=== PATIENT | female | born 2000 | race American Indian/Alaskan Native ===

== ENCOUNTER 2019-05-08 18:51 | Emergency (ER) | payer SELFPAY ==
--- NOTE | 2019-05-08 21:19 | Event Note ---
ED Screening Note Date of service: 05/08/19 Time: 21:12 ED Screening Note: This is a 18 y.o. F. that presents to the ER with vaginal pain and pelvic pain for 2 weeks. LMP 03/26/19 Admits vaginal discharge, vaginal pain, and pelvic pain This initial assessment/diagnostic orders/clinical plan/treatment(s) is/are subject to change based on patients health status, clinical progression and re- assessment by fellow clinical providers in the ED. Further treatment and workup at subsequent clinical providers discretion. Patient/guardian urged not to elope from the ED as their condition may be serious if not clinically assessed and managed. Initial orders include: Labs Pelvic exam
[2019-05-08 22:54] LABS: Bilirubin,Urine NEG (Negative); Blood,Urine LG (Negative); Color,Urine Yellow (Yellow); Mucus,Urine 2+ /HPF; RBC,Urine > 182.0 /HPF (0.0-6.0); Urobilinogen,Urine < 2.0 mg/dL (<2.0)
[2019-05-08 22:55] LABS: HCG Qualitative,Urine Negative (Negative)
[2019-05-08] MEDS ORDERED: LIDOCAINE-MPF (1%) 10 MG/1 ML VIAL 5 ML INFILTRATI ONE (22:59)
[2019-05-08] MEDS ORDERED: valACYclovir 500 MG TAB PO ONE (22:59)
[2019-05-08] MEDS ORDERED: AZITHROMYCIN 1 GM ORAL PWDR PACKET PO ONE (22:59)
[2019-05-08] MEDS ORDERED: oxyCODONE /ACETAMINOPHEN 5-325MG TAB PO ONE (23:11)
--- NOTE | 2019-05-08 23:18 | Emergency Department Report ---
ED Female HPI - General Chief complaint: Urogenital-Female Stated complaint: ABD PAIN/STOMACH PAIN Time Seen by Provider: 05/08/19 21:12 Source: patient Mode of arrival: Ambulatory Limitations: No Limitations - History of Present Illness Initial comments: pt is a 18-year-old female who presents emergency room with complaints of vaginal pain that began a couple weeks ago. She has associated copious amounts of vaginal discharge which she says is clear and has an odor. She states that she also has vaginal burning and dysuria. She states that she is sexually active and states she uses protection. She denies having any new partner. She denies any history of STDs. She states her last menstrual cycle was in March. She states she has a past medical history of ovarian cysts. - Related Data Previous Rx's Medication Instructions Recorded Last Taken Type Fluconazole [Diflucan TAB] 150 mg PO ONCE #1 tablet 05/09/19 Unknown Rx cephALEXin [Keflex] 500 mg PO BID 7 Days #14 cap 05/09/19 Unknown Rx valACYclovir [Valtrex] 1,000 mg PO BID 7 Days #14 tab 05/09/19 Unknown Rx Allergies Allergy/AdvReac Type Severity Reaction Status Date / Time No Known Allergies Allergy Verified 05/08/19 23:01 ED Review of Systems ROS: Stated complaint: ABD PAIN/STOMACH PAIN Other details as noted in HPI Comment: All other systems reviewed and negative ED Past Medical Hx - Past Medical History Previous Medical History?: No - Surgical History Additional Surgical History: nose and ear surgery as a baby - Social History Smoking Status: Never Smoker Substance Use Type: Marijuana - Medications Home Medications: Home Medications Medication Instructions Recorded Confirmed Last Taken Type Fluconazole [Diflucan TAB] 150 mg PO ONCE #1 tablet 05/09/19 Unknown Rx cephALEXin [Keflex] 500 mg PO BID 7 Days #14 cap 05/09/19 Unknown Rx valACYclovir [Valtrex] 1,000 mg PO BID 7 Days #14 tab 05/09/19 Unknown Rx ED Physical Exam - General Limitations: No Limitations General appearance: alert, in no apparent distress - Head Head exam: Present: atraumatic, normocephalic - Eye Eye exam: Present: normal appearance - ENT ENT exam: Present: mucous membranes moist - External exam: Present: other (multiple blisters and shallow ulcerations present to the bilateral labia) Speculum exam: Present: vaginal discharge (white), cervical discharge (white), other (multiple shallow ulcerations present inside the vaginal canal and present on the cervix, home health care social worker: KYUNG tello) Bi-manual exam: Present: other (unable to perform bimanual exam secondary to pain from blisters/ulcerations) - Neurological Exam Neurological exam: Present: alert, oriented X3 - Psychiatric Psychiatric exam: Present: normal affect, normal mood - Skin Skin exam: Present: warm, dry, intact ED Course Vital Signs 05/08/19 05/08/19 05/09/19 21:12 23:42 00:44 Temperature 99.5 F 98.1 F Pulse Rate 118 H 92 H Respiratory 18 16 16 Rate Blood Pressure 122/65 Blood Pressure 111/61 [Right] O2 Sat by Pulse 100 100 Oximetry ED Medical Decision Making - Lab Data Lab Results 05/08/19 Range/Units 22:07 Urine Color Yellow (Yellow) Urine Turbidity Slightly-cloudy (Clear) Urine pH 6.0 (5.0-7.0) Ur Specific [place] 1.025 (1.003-1.030) Urine Protein 100 mg/dl (Negative) mg/dL Urine Glucose (UA) Neg (Negative) mg/dL Urine Ketones 20 (Negative) mg/dL Urine Blood Lg (Negative) Urine Nitrite Neg (Negative) Urine Bilirubin Neg (Negative) Urine Urobilinogen < 2.0 (<2.0) mg/dL Ur Leukocyte Esterase Lg (Negative) Urine WBC (Auto) 151.0 H (0.0-6.0) /HPF Urine RBC (Auto) > 182.0 (0.0-6.0) /HPF U Epithel Cells (Auto) 5.0 (0-13.0) /HPF Urine Mucus 2+ /HPF Urine HCG, Qual Negative (Negative) - Medical Decision Making pt is a 18-year-old female who presents emergency room with complaints of vaginal pain that began a couple weeks ago. She has associated copious amounts of vaginal discharge which she says is clear and has an odor. She states that she also has vaginal burning and dysuria. She states that she is sexually active and states she uses protection. She denies having any new partner. She denies any history of STDs. She states her last menstrual cycle was in March. She states she has a past medical history of ovarian cysts. Initial vitals with tachycardia otherwise normal which improved upon repeat. UA shows many white blood cells, large leukocyte esterase, many RBCs. Urine test is negative. Wet prep shows evidence of yeast. G/C swab sent. multiple blisters and shallow ulcerations present to the bilateral labia, unable to perform bimanual exam secondary to pain from blisters/ulcerations, multiple shallow ulcerations present inside the vaginal canal and present on the cervix, home health care social worker: elisha, EMT, white cervical and vaginal discharge. pt treated prophylactically for G/C with azithromycin and ceftriaxone. Examination appears consistent with herpes vaginalis infection, patient given first dose of valacyclovir while in the emergency department. Patient's discomfort treated while in the emergency department as she did not drive and improved. discussed that the herpes virus was lifelong and can be transmitted to others, discussed safe sex practices, discussed follow up with the health department for a full STD panel, answered all patients questions. given prescription for valacyclovir, Keflex, Diflucan. advised pt to Please take medication as prescribed. do not drink alcohol while taking the medication. take medication with food. Please have all partners tested and treated as well. Avoid sexual intercourse for 2 weeks. 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 Please go to the health department in the next 2-3 days for a full STD panel. Return to the emergency room for any new or worsening symptoms. - Differential Diagnosis STD, yeast, BV, bartholins cyst, PID Critical care attestation.: If time is entered above; I have spent that time in minutes in the direct care of this critically ill patient, excluding procedure time. ED Disposition Clinical Impression: Herpes simplex virus (HSV) infection of vagina, Yeast infection UTI (urinary tract infection) Qualifiers: Urinary tract infection type: acute cystitis Hematuria presence: with hematuria Qualified Code(s): N30.01 - Acute cystitis with hematuria Disposition: TO HOME OR SELFCARE Is pt being admited?: No Does the pt Need Aspirin: No Condition: Stable Instructions: Genital Herpes Simplex (ED), Urinary Tract Infection in Women (ED), Vulvovaginal Candidiasis (ED) Additional Instructions: Please take medication as prescribed. do not drink alcohol while taking the medication. take medication with food. Please have all partners tested and treated as well. Avoid sexual intercourse for 2 weeks. 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 Please go to the health department in the next 2-3 days for a full STD panel. Return to the emergency room for any new or worsening symptoms. Prescriptions: Fluconazole [Diflucan TAB] 150 mg PO ONCE #1 tablet cephALEXin [Keflex] 500 mg PO BID 7 Days #14 cap valACYclovir [Valtrex] 1,000 mg PO BID 7 Days #14 tab Referrals: [facility] [Outside] - 2-3 Days Time of Disposition: 00:33 Print Language: PAKIST[place]
[2019-05-09 00:45] VITALS: BP 111/61
== END 2019-05-09 00:44 | disposition home or self-care (01) ==
LOC: ED 18:51
DX: N39.0 Urinary tract infection, site not specified (principal); B00.9 Herpesviral infection, unspecified; B37.3 Candidiasis of vulva and vagina; F12.10 Cannabis abuse, uncomplicated
CPT/HCPCS: 81001; 81025; 87210; 87591; 96372; 99284; J0696